=== PATIENT | female | born 1955 | race Caucasian/White ===

== ENCOUNTER → 2016-08-07 | Outpatient (CLI) | payer OTHER ==
--- NOTE | 2016-08-07 08:31 | ST Modified Barium Swallow ---
Recommendation - Recommendations Recommendations: 1) Continue current diet of regular solids and thin liquids. 2 ) Dry swallow after swallows of thin. 3) Alternate bites and sips to clear residuals of solids from pharyngeal cavity. SUMMARY: Pt presents with a mild oropharyngeal dysphagia characterized by mildly weak base of tongue resulting in trace to mild residuals of soilds in valleculae and trace to mild residuals of thin in valleculae which were observed to pool into pyriforms. Residuals of solids observed to clear with swallow of thin. Residuals of thin observed to clear with dry swallow. Pt reports no history of PNA. ST educated pt on reducing risk of aspiration PNA (e.g. following recommendations from study, good oral hygiene, maintain active lifestyle, etc.). Medical Diagnoses - Medical Diagnoses Medical Diagnosis Description & ICD-10 Code(s): dysphagia, oropharyngeal phase Other Medical Diagnoses/Co-Morbidities: diabetes, reflux, arthritis - ICD-10 Tx Diagnosis Coding (1) Dysphagia, oropharyngeal phase ICD-10 Code(s): R13.12 - DYSPHAGIA, OROPHARYNGEAL PHASE ST Modified Barium Swallow - General Date: 08/07/16 Referring Physician: Dr Lainez Risks/Precautions: None Date of Onset: 08/07/13 Reason for Referral: dysphagia, oropharyngeal phase - History History obtained from: Patient -: Medical - Pt referred for MBSS by GI. Pt states had completed upper endoscopy and reports results were "normal". Pt reports coughing 1-2 times a day during meals and independent of meals. States she coughs on "saliva" and often feels like "things come up out of the wrong tube." Pt endorses coughing, choking, and globus sensation in upper neck. Pt reports onset of symptoms started approximately 2 years ago, however has gradually become worse. Pt denies history of PNA or bronchitis. States eats a regular and thin diet without restrictions. PMHx: diabetes, reflux, arthritis, "nodule on thyroid". Medications: tanzeum, nexium, gen[place], zyrtec, lipitor, vitamin D Allergies: etodolac, soma, metformin - Functional Status Prior Functional Status: INDEPENDENT: feeding Current Functional Limitations: feeding - Subjective Patient/caregiver goal(s): safe swallow Cognitive-Linguistic Function: WNL Speech Intelligibility: WNL Current Nutritional Means: PO Current PO diet: Regular Current symptoms: Coughing, c/o Globus sensation - upper neck Pain: 0/5 - Objective Assessment: Upright, Left Lateral - Food Trials Used Food trials used: Thin liquids, Pureed, Regular The patient: Was Able to Self Feed, via cup, via spoon, via straw - Oral-Motor Skills Dentition: Full Velo-pharyngeal function: Unremarkable Laryngeal Function: Volitional Cough, Volitional Swallow, clear voicing - Assessment Oral prep: Normal Labial closure: Adequate Leakage: None Mastication: Adequate Lingual Movement: Normal Oral stage: Normal for this Procedure - Pharyngeal Stage Initiation of Pharyngeal Stage Reflex: Normal Reduced Velopharyngeal Closure: no Reduced pressure generation: Yes - mild reduced tongue-based retraction: Yes - mild Pre-swallow pooling in valleculae: None Pre-Swallow pooling in pyriforms: None Reduced Thyro-Hyoid approximation: No Reduced epiglottic excursion: No Reduced pharyngeal peristalsis/contraction: No Post-swallow residulas vallecular: Mild - trace to mild on thin and regular Post-Swallow residuals in pyriforms: Mild - trace to mild on thin and regular - Fall Risk Assessment Medications/Conditions that increase fall risks include: Antidepressants, sedatives, anti-arrhythmic, diuretic, benzodiazipenes, neuroleptics. BP regulation problems, cardiac problems, balance or gait deficits, neurological problems. Is patient considered at risk for falls: no Fall Risk Actions Taken: No action needed - Behavioral Observations During evaluation process patient: was pleasant, was cooperative, able to answer questions, provided medical history - Treatment / Educational Needs: Treatment/Education Needs: Treatment consisted of patient education on the role of the Speech Pathologist. Patient's plan of care and golas were communicated as well as scheduling and attendance policies. Recommendations for initial home program were shared. Patient demonstrated understanding and verbalized agreement. Initial home program recommendations: Pt provided with verbal and written education on reflux precautions, dysphagia, and recommendations for safe feeding strategies from study. Pt asked appropriate questions and verbalized understanding of recommendations with teach-back strategy. - Impression/Summary Laryngeal Penetration: No Tracheal Aspiration: no Patient presents with: Oral-Pharyngeal dysph. - mild Risk of Aspiration: Mild - minimal-mild - Recommendations NPO: no Solid diet recommendations: Regular Liquid Diet Modification: Thin Pt/Family education and followup with MD: Yes Dysphagia therapy with MANAGER GAME: no Recommended techniques: Fully Upright During Meal, Alternate Bites/Sips Supervision: Independent Information, Precautions and Recommendations: Patient (Written), Patient (Verbal ) - Time Total Time: 20 - Plan of Care Strategies to optimize patient understanding include:: ongoing assessment of educational needs, implementation of educational strategies, and re-education. - - -: Thank you for the opportunity to work with this patient and his/her family. Should you have any questions about this patient's plan or progress, I can be reached at [phone]. Charge G Code? - - -: No
== END ==
LOC: RAD 07:32
PROVIDERS: ATTEND Internal Medicine Gastroenterology
DX: R13.12 Dysphagia, oropharyngeal phase (principal)
CPT/HCPCS: 74230